=== PATIENT | male | born 1990 | race Two or more races ===

== ENCOUNTER 2024-11-19 20:15 | Emergency (ER) | payer BC ==
[~2024-11-19] VITALS: Ht 172.7 cm; Wt 74.8 kg
[2024-11-19 21:09] VITALS: TEMP 98.5
[2024-11-19] MEDS ORDERED: IBUP-1490 PO (22:03)
[2024-11-19] MEDS ORDERED: LIDO30AD10 TP (22:03)
[2024-11-19] MEDS ORDERED: METH-649 PO (22:03)
[2024-11-19] MEDS ORDERED: LIDOCAINE 5% (PATCH) 1 EA PATCH TP ONE (22:06)
[2024-11-19] MEDS: LIDOCAINE 5% (PATCH) 1 EA PATCH TP STA (22:07)
[2024-11-19] MEDS ORDERED: KETOROLAC TROMETHAMINE INJ 30 MG/ML VIAL ONE (22:07)
[2024-11-19] MEDS ORDERED: METHOCARBAMOL (500MG) 500 MG TABLET ONE (22:07)
[2024-11-19] MEDS: METHOCARBAMOL (750MG) 750 MG TABLET PO ONE (22:07)
[2024-11-19] MEDS: KETOROLAC TROMETHAMINE 15 MG/ML VIAL IM ONE (22:07)
[2024-11-19 22:26] VITALS: BP 113/75; O2SAT 98
== END 2024-11-19 22:15 | disposition home or self-care (01) ==
LOC: ER 20:19
DX: S16.1XXA Strain of muscle, fascia and tendon at neck level, initial encounter (principal); X58.XXXA Exposure to other specified factors, initial encounter; Y93.9 Activity, unspecified; Y92.39 Other specified sports and athletic area as the place of occurrence of the external cause; Y99.8 Other external cause status
CPT/HCPCS: 99284; 96372; 72040; 73030; J1885